=== PATIENT | female | born 1980 | race Hispanic/Latino ===

== ENCOUNTER 2016-12-16 15:33 | Outpatient (CLI) | payer OTHER | END 2016-12-16 15:34 | disposition home or self-care (01) | LOC: HPCALD 15:33 | PROVIDERS: ATTEND Physician Assistant | DX: K65.1 Peritoneal abscess (principal) | CPT/HCPCS: 87070; 87205 ==

== ENCOUNTER 2016-12-25 16:32 | Emergency (ER) | payer SELFPAY ==
--- NOTE | 2016-12-25 18:02 | ERRECORD ---
[facility] EMERGENCY RECORD HPI WOUND CHECK (17:10 DHAM) CHIEF COMPLAINT: Patient presents for evaluation of abdominal wound, incision, Wound is greater than 14 days old. HISTORIAN: History provided by patient, Pt has a vertical c section scar from surgery 5 years ago. This started pulling apart 2-3 weeks ago and was seen by Dr. Wu. She said it was worse today and they had no appts so she was told to come see us. She also has today developed nasal congestion, runny nose, slight sore throat and dry cough. She c/o chest soreness when she coughs. no fever or chills. she is a diabetic and did receive a flu shot. LOCATION: Symptoms are localized, most severe to lower abdomen. QUALITY: Pain is dull in nature, described as aching, described as only with a cough. SEVERITY: Current severity of pain rated as 8/10. TIME COURSE: There has been no change in the patient's symptoms over time, are intermittent. ASSOCIATED WITH: No associated chills, No associated fever. EXACERBATED BY: Patient's condition exacerbated by cough. RELIEVED BY: Patient's condition relieved by nothing, Patient's condition relieved by has albuterol at home but has not used it. ROS (17:19 DHAM) CONSTITUTIONAL: Historian denies chills, denies fever, denies lethargy. EYES: Historian denies eye pain, denies eye redness, denies eye discharge. ENT: Historian reports rhinorrhea, reports sore throat. nasal congestion. CARDIOVASCULAR: Historian reports chest pain, pleuritic, no radiation, Historian denies diaphoresis, denies dyspnea on exertion, denies edema, denies syncope, denies palpitations. RESPIRATORY: Historian reports cough, denies shortness of breath, denies sputum, denies stridor, denies wheezing. GI: Historian reports abdominal pain, denies nausea, denies vomiting. see skin below. MUSCULOSKELETAL: Historian denies arthralgias, denies fall, denies injury. SKIN: Historian reports skin lesions, 2 quarter sized skin tears on vertical lower abdominal scar. NEUROLOGIC: Historian denies dizziness, denies headache, denies paralysis, denies paresthesias. HEMO/LYMPHATIC: Historian denies abnormal blood clotting, denies easy bruising. ALLERGIC/IMMUNOLOGIC: Historian denies eczema, denies frequent infections. h/o asthma. PSYCHIATRIC: Historian reports depression. &a-1R&a+25V*p+0X*i0680F*c202B*c15G*c2P*p-0X&a-25V&a+1R Name: Yu Valadez : 1980 F36 MedRec: [id number] AcctNum: [id number] Prepared: [facility] Dec 26, 2016 01:23 by Interface Page 1 of 3 pMD [facility] EMERGENCY RECORD PAST MEDICAL HISTORY (16:45 LGIB) MEDICAL HISTORY: Flu vaccine not up to date, Tetanus not up to date, Pneumococcal vaccine not up to date, Past medical history includes history of diabetes, history of hypertension, pulmonary disease. asthma. FEMALE SURGICAL HISTORY: intestine sx as a child, Surgical history of cholecystectomy, laparoscopic, Surgical history of section. Verified 12/25/16. PSYCHIATRIC HISTORY: Psychiatric history includes, anxiety, schizophrenia, depression, BIPOLAR. Verified 12/25/16. SOCIAL HISTORY: Patient denies alcohol use, Patient denies drug use, Patient has no smoking history. KNOWN ALLERGIES No Known Allergies (Unconfirmed) CURRENT MEDICATIONS (16:43 LGIB) Unable to obtain VITAL SIGNS VITAL SIGNS: BP: 126/84, Pulse: 105, Resp: 20 (Non-Labored), Temp: 98.7 (Oral), Pain: 8, O2 sat: 97 on Room Air, Time: 12/25/2016 16:42. (16:42 LGIB) BP: 109/51, Pulse: 93, Resp: 19 (Non-Labored), O2 sat: 97 on Room Air, Time: 12/25/2016 17:41. (17:41 LGIB) PHYSICAL EXAM (17:22 DHAM) CONSTITUTIONAL: Vital signs reviewed, Patient afebrile, Pulse, tachycardic, initially mildly tachycardic but this came into the 80-90. She does not appear in distress, Blood pressure normal, Respiratory rate normal, Patient appears non toxic, Patient appears pain free, Patient alert and oriented to person, place and time. NECK: Neck exam included findings of normal range of motion, no meningeal signs. RESPIRATORY CHEST: Breath sounds clear, No wheezing, No rales, No rhonchi. CARDIOVASCULAR: Cardiovascular exam included findings of heart rate regular rate and rhythm, Heart sounds normal, normal S1, normal S2, no murmurs, no rub, no gallop. ABDOMEN FEMALE: Abdominal exam included findings of abdomen nontender, Bowel sounds normal, Liver normal, Spleen normal, no distension, no pulsatile masses, no peritoneal signs, no rigidity, no guarding, no rebound, see skin below. SKIN: 2 quarter sized skin tears on vertical lower abdominal scar. they are very superficial and not into the subcutaneous fat. It looks like this morbid obesity has just stretched the scar and caused these 2 superficial skin tears. no drainage or s/s of infection. &a-1R&a+25V*p+0X*x6310A*c202B*c15G*c2P*p-0X&a-25V&a+1R Name: Yu Valadez : 1980 6 MedRec: [id number] AcctNum: [id number] Prepared: FriDec 26, 2016 01:23 by Interface Page 2 of 3 pMD [facility] EMERGENCY RECORD LYMPHATIC: Lymphatic exam normal. PSYCHIATRIC: Psychiatric exam included findings of patient oriented to person place and time, Normal affect, Judgment normal, Insight normal, Remote memory normal, Recent memory normal, Concentration normal. PROBLEM LIST No recorded problems DIAGNOSIS (17:45 DHAM) FINAL: PRIMARY: skin tear abdomen x 2, ADDITIONAL: upper respiratory infection. PRESCRIPTION No recorded prescriptions DISPOSITION PATIENT: Disposition Type: Discharge, Disposition: *Discharge Home. (17:45 DHAM) Patient left the department. (17:54 LSMI) Osullivan: KATHRYN=MD Tamika, Bernardo LGIB=BLAIR Dixon, Claudia LSMI=SIMONA Del Toro, Saloni &a-1R&a+25V*p+0X*j1046M*c202B*c15G*c2P*p-0X&a-25V&a+1R Name: Yu Valadez : 1980 6 MedRec: [id number] AcctNum: [id number] Prepared: Elidia Dec 26, 2016 01:23 by Interface Page 3 of 3 pMD MTDD
--- NOTE | 2016-12-25 18:08 | PICIS ---
[facility] EMERGENCY RECORD TRIAGE (FriDec 25, 2016 16:37 LGIB) TRIAGE NOTES: STARTED TODAY, NON-PRODUCTIVE. (FriDec 25, 2016 16:37 LGIB) PATIENT: NAME: Yu Valadez, AGE: 36, GENDER: female, : Sun 1980, TIME OF GREET: FriDec 25, 2016 16:33, PREFERRED LANGUAGE: Senegalese, ETHNICITY: or , ECODE BILLING MAP: [facility], SSN: [id number], Zip Code: [address], KG WEIGHT: [phone], PHONE: , , , PERSON ID: [id number], PCP: DO DE LA ROSA KRISTEL. (FriDec 25, 2016 16:37 LGIB) PAYMENT: [employer] Self Pay. (16:44) COMPLAINT: COUGH, scar opened. (16:42 LGIB) ADMISSION: URGENCY: 4 Non Urgent, ADMISSION SOURCE: Home, TRANSPORT: CAR, BED: ER -03. (FriDec 25, 2016 16:37 LGIB) SIRS SCORING: Heart Rate 55-109 (0), Temp range 96.8-101.1 (0), respiratory rate 12-24 (0), Mental Status altered: no (0), Total SIRS Score 0. (16:45 LGIB) LMP: Last menstrual period: 12/16/2016. (17:33 LGIB) PROVIDERS: TRIAGE NURSE: Claudia Dixon RN. (FriDec 25, 2016 16:37 LGIB) PREVIOUS VISIT ALLERGIES: No Known Allergies. (FriDec 25, 2016 16:37 LGIB) No Known Allergies. (16:45 LGIB) KNOWN ALLERGIES No Known Allergies (Unconfirmed) CURRENT MEDICATIONS (16:43 LGIB) Unable to obtain VITAL SIGNS VITAL SIGNS: BP: 126/84, Pulse: 105, Resp: 20 (Non-Labored), Temp: 98.7 (Oral), Pain: 8, O2 sat: 97 on Room Air, Time: 12/25/2016 16:42. (16:42 LGIB) BP: 109/51, Pulse: 93, Resp: 19 (Non-Labored), O2 sat: 97 on Room Air, Time: 12/25/2016 17:41. (17:41 LGIB) NURSING ASSESSMENT: RESPIRATORY /CHEST (16:42 LGIB) CONSTITUTIONAL: Complex assessment performed, Patient arrives ambulatory, Gait steady, History obtained from patient, Patient appears comfortable, Patient cooperative, Patient alert, Oriented to person, place and time, Skin warm, Skin dry, Skin normal in color, Mucous membranes pink, Mucous membranes moist, Patient is well-groomed, Patient complains of COUGH, COUGH THAT BEGAN TODAY. NON-PRODUCTIVE, NAD RR EVEN AND UNLABORED. PAIN: on a scale 0-10 patient rates pain as 8. RESPIRATORY/CHEST: Breath sounds clear, Respiratory assessment findings include respiratory effort easy, Respirations regular, Conversing normally, Neck and chest exam findings include trachea midline, Chest expansion equal, Chest movement symmetrical, no signs &a-1R&a+25V*p+0X*l3061P*c202B*c15G*c2P*p-0X&a-25V&a+1R Name: Yu Valadez : 1980 F36 MedRec: [id number] AcctNum: [id number] Prepared: [facility] Dec 26, 2016 01:23 by Interface Page 1 of 6 pMD [facility] EMERGENCY RECORD of distress, no retractions noted, no cyanosis. ENT: Ear assessment findings include ear normal to inspection, Nasal assessment findings include nose normal to inspection, Mouth and throat assessment findings include mouth inspection normal. SAFETY: Side rails up, Cart/Stretcher in lowest position, Call light within reach, Hospital ID band on. NURSING PROCEDURE: DISCHARGE NOTE (17:51 LSMI) DISCHARGE: Patient discharged to home, ambulating without assistance, driving self, unaccompanied, Summary of Care printed/ provided, Transition record given to patient, Discharge instructions given to patient, Simple or moderate discharge teaching performed. ORDER DETAILS Order Name: Influenza A&B Ag Screen, Status: Active, Time: 17:15 12/25/2016, User: KATHRYN, - Ordered for: MD Lundberg Darren, - Entered by: MD Lundberg Darren - [facility] Dec 25, 2016 17:15, - Quantity: 1. HPI WOUND CHECK (17:10 [facility]) CHIEF COMPLAINT: Patient presents for evaluation of abdominal wound, incision, Wound is greater than 14 days old. HISTORIAN: History provided by patient, Pt has a vertical c section scar from surgery 5 years ago. This started pulling apart 2-3 weeks ago and was seen by Dr. De La Rosa. She said it was worse today and they had no appts so she was told to come see us. She also has today developed nasal congestion, runny nose, slight sore throat and dry cough. She c/o chest soreness when she coughs. no fever or chills. she is a diabetic and did receive a flu shot. LOCATION: Symptoms are localized, most severe to lower abdomen. QUALITY: Pain is dull in nature, described as aching, described as only with a cough. SEVERITY: Current severity of pain rated as 8/10. TIME COURSE: There has been no change in the patient's symptoms over time, are intermittent. ASSOCIATED WITH: No associated chills, No associated fever. EXACERBATED BY: Patient's condition exacerbated by cough. RELIEVED BY: Patient's condition relieved by nothing, Patient's condition relieved by has albuterol at home but has not used it. ROS (17:19 [facility]) CONSTITUTIONAL: Historian denies chills, denies fever, denies lethargy. EYES: Historian denies eye pain, denies eye redness, denies eye discharge. ENT: Historian reports rhinorrhea, reports sore &a-1R&a+25V*p+0X*d5154J*c202B*c15G*c2P*p-0X&a-25V&a+1R Name: Yu Valadez : 1980 F36 MedRec: [id number] AcctNum: [id number] Prepared: FriDec 26, 2016 01:23 by Interface Page 2 of 6 pMD [facility] EMERGENCY RECORD throat. nasal congestion. CARDIOVASCULAR: Historian reports chest pain, pleuritic, no radiation, Historian denies diaphoresis, denies dyspnea on exertion, denies edema, denies syncope, denies palpitations. RESPIRATORY: Historian reports cough, denies shortness of breath, denies sputum, denies stridor, denies wheezing. GI: Historian reports abdominal pain, denies nausea, denies vomiting. see skin below. MUSCULOSKELETAL: Historian denies arthralgias, denies fall, denies injury. SKIN: Historian reports skin lesions, 2 quarter sized skin tears on vertical lower abdominal scar. NEUROLOGIC: Historian denies dizziness, denies headache, denies paralysis, denies paresthesias. HEMO/LYMPHATIC: Historian denies abnormal blood clotting, denies easy bruising. ALLERGIC/IMMUNOLOGIC: Historian denies eczema, denies frequent infections. h/o asthma. PSYCHIATRIC: Historian reports depression. PAST MEDICAL HISTORY (16:45 LGIB) MEDICAL HISTORY: Flu vaccine not up to date, Tetanus not up to date, Pneumococcal vaccine not up to date, Past medical history includes history of diabetes, history of hypertension, pulmonary disease. asthma. FEMALE SURGICAL HISTORY: intestine sx as a child, Surgical history of cholecystectomy, laparoscopic, Surgical history of section. Verified 12/25/16. PSYCHIATRIC HISTORY: Psychiatric history includes, anxiety, schizophrenia, depression, BIPOLAR. Verified 12/25/16. SOCIAL HISTORY: Patient denies alcohol use, Patient denies drug use, Patient has no smoking history. PHYSICAL EXAM (17:22 DHAM) CONSTITUTIONAL: Vital signs reviewed, Patient afebrile, Pulse, tachycardic, initially mildly tachycardic but this came into the 80-90. She does not appear in distress, Blood pressure normal, Respiratory rate normal, Patient appears non toxic, Patient appears pain free, Patient alert and oriented to person, place and time. NECK: Neck exam included findings of normal range of motion, no meningeal signs. RESPIRATORY CHEST: Breath sounds clear, No wheezing, No rales, No rhonchi. CARDIOVASCULAR: Cardiovascular exam included findings of heart rate regular rate and rhythm, Heart sounds normal, normal S1, normal S2, no murmurs, no rub, no gallop. ABDOMEN FEMALE: Abdominal exam included findings of abdomen &a-1R&a+25V*p+0X*z9616H*c202B*c15G*c2P*p-0X&a-25V&a+1R Name: Yu Valadez : 1980 F36 MedRec: [id number] AcctNum: [id number] Prepared: Elidia Dec 26, 2016 01:23 by Interface Page 3 of 6 pMD [facility] EMERGENCY RECORD nontender, Bowel sounds normal, Liver normal, Spleen normal, no distension, no pulsatile masses, no peritoneal signs, no rigidity, no guarding, no rebound, see skin below. SKIN: 2 quarter sized skin tears on vertical lower abdominal scar. they are very superficial and not into the subcutaneous fat. It looks like this morbid obesity has just stretched the scar and caused these 2 superficial skin tears. no drainage or s/s of infection. LYMPHATIC: Lymphatic exam normal. PSYCHIATRIC: Psychiatric exam included findings of patient oriented to person place and time, Normal affect, Judgment normal, Insight normal, Remote memory normal, Recent memory normal, Concentration normal. EVENTS TRANSFER: Triage to Emergency Emergency Room -03. (FriDec 25, 2016 16:37 LGIB) Removed from Emergency Emergency Room -03. (17:54 LSMI) O2SAT INTERPRETATION (17:29 DHAM) O2SAT: Single pulse oximetry, Oxygen saturation 97%, on room air, Oxygen saturation interpretation: Normal, No intervention required. WOUND CHECK (17:42 DHAM) WOUND CHECK: Side and/or site verified, Patient identification confirmed, Sterile procedures observed, Verbal consent obtained, Wound check indicated for, skin tear, Wound check to, wet to dry applied by me, to abdomen, Wound age greater than 14 days, No drainage present, Wound clean, dry and intact, Patient tolerated the procedure well. PROBLEM LIST No recorded problems DIAGNOSIS (17:45 DHAM) FINAL: PRIMARY: skin tear abdomen x 2, ADDITIONAL: upper respiratory infection. DISPOSITION PATIENT: Disposition Type: Discharge, Disposition: *Discharge Home. (17:45 DHAM) Patient left the department. (17:54 LSMI) INSTRUCTION (17:47 DHAM) DISCHARGE: ABRASION, UPPER RESP INFECTION NO ANTIBIOTIC TREATMENT ADULT. FOLLOWUP: DO DE LA ROSA KRISTEL, Family [facility], [facility] [address], [phone]. SPECIAL: Wet to dry dressing TWICE A DAY as demonstrated See Dr. De La Rosa in 48 hours for recheck or return for signs of &a-1R&a+25V*p+0X*w5309X*c202B*c15G*c2P*p-0X&a-25V&a+1R Name: Yu Valadez : 1980 F36 MedRec: [id number] AcctNum: [id number] Prepared: FriDec 26, 2016 01:23 by Interface Page 4 of 6 pMD [facility] EMERGENCY RECORD infection such as redness, swelling, drainage or other concerns. Sudafed 12 hour each am and Afrin nasal spray at night for congestion Aleve 2 twice a day for aches and pains drink plenty of liquids return for fevers that last over 3 days or any other concerns. PRESCRIPTION No recorded prescriptions IMAGING *DISCHARGE INSTRUCTIONS RECEIPT: Image captured from scanner. (17:52 LSMI) *SUPPLY CHARGE SHEET: Image captured from scanner. (17:53 LSMI) ADMIN (FriDec 26, 2016 01:20 DHAM) DIGITAL SIGNATURE: MD Lundberg Darren. RESULTS (17:42 DHAM) MICROBIOLOGY: Influenza A&B Ag Screen: [id number] Collection DT: FriDec 25, 2016 17:28, See comment below , @ ER ROOM#: ER-03 Source: Nasal swab Spec Desc: , Influenza A Antigen: NEGATIVE for the , presence of , INFLUENZA A Antigen , Influenza B Antigen: NEGATIVE for the , presence of , INFLUENZA B Antigen , The rapid Flu A&B test can distinguish between influenza A , Influenza A&B Ag Screen See comment below , and B viruses, but it does not differentiate influenza , Influenza A&B Ag Screen See comment below , subtypes. , Influenza A&B Ag Screen See comment below , Influenza A&B Ag Screen See comment below , Influenza A&B Ag Screen See comment below , Influenza A&B Ag Screen See comment below , characteristics of this device with human specimens infected , Influenza A&B Ag Screen See comment below , with the 2009 H1N1 influenza virus have not been , Influenza A&B Ag Screen See comment below , established. For example: this test cannot distinguish , Influenza A&B Ag Screen See comment below , influenza infections caused by novel H1N1 influenza A , Influenza A&B Ag Screen See comment below , viruses versus seasonal influenza A viruses. , Influenza A&B Ag Screen See comment below , , Influenza A&B Ag Screen See comment below , A negative result does not exclude influenza virus , Influenza A&B Ag Screen See comment below , infection; therefore, if &a-1R&a+25V*p+0X*u1396R*c202B*c15G*c2P*p-0X&a-25V&a+1R Name: Yu Valadez : 1980 6 MedRec: [id number] AcctNum: [id number] Prepared: FriDec 26, 2016 01:23 by Interface Page 5 of 6 pMD [facility] EMERGENCY RECORD more conclusive testing is desired, , Influenza A&B Ag Screen See comment below , follow up confirmatory testing is warranted., Influenza A&B Ag Screen See comment below . Osullivan: KATHRYN=MD Tamika, Bernardo LGIB=BLAIR Dixon, Claudia LSMI=SIMONA Del Toro Leah &a-1R&a+25V*p+0X*d2342Y*c202B*c15G*c2P*p-0X&a-25V&a+1R Name: Yu Valadez : 1980 6 MedRec: [id number] AcctNum: [id number] Prepared: FriDec 26, 2016 01:23 by Interface Page 6 of 6 pMD MTDD
== END 2016-12-25 17:51 | disposition home or self-care (01) ==
LOC: BURERS 16:32
DX: S31.119A Laceration without foreign body of abdominal wall, unspecified quadrant without penetration into peritoneal cavity, initial encounter (principal); J06.9 Acute upper respiratory infection, unspecified; I10 Essential (primary) hypertension; J45.909 Unspecified asthma, uncomplicated; E11.9 Type 2 diabetes mellitus without complications; F31.9 Bipolar disorder, unspecified; F20.9 Schizophrenia, unspecified; X58.XXXA Exposure to other specified factors, initial encounter
CPT/HCPCS: 99283

== ENCOUNTER 2017-07-29 13:52 | Emergency (ER) | payer MEDICAID, OTHER, SELFPAY ==
[2017-07-29 14:21] LABS: Bilirubin Negative (Negative); Blood, Urine Negative (Negative); Clarity Slightly Cloudy (Clear); Glucose, Urine (Dipstick) Negative (Negative); Leukocyte Negative (Negative); Nitrite Negative (Negative); Protein, Urine (Dipstick) Negative (Neg-Trace); Specific Gravity, Urine 1.015 (1.005-1.030); Urobilinogen 0.2 mg/dL (0.2-1.0)
[2017-07-29 14:27] LABS: Pregnancy Test - Urine (BHCG) Negative (Negative); Pregu Control Background? CLEAR/WHITE (CLR/WHITE); Pregu Control Bar Appear? YES (CONTROL BAR); Specific Gravity 1.015 (1.002-1.036)
[2017-07-29] MEDS ORDERED: Ondansetron HCl/PF 4 MG/2 ML Vial ONE (14:32)
[2017-07-29] MEDS ORDERED: Fentanyl 100 MCG/2 ML VIAL ONE ×2 (14:33→17:42)
[2017-07-29 14:35] LABS: ALT (SGPT) 26 U/L (8-55); AST (SGOT) 19 U/L (5-34); Albumin 4.1 g/dL (3.5-5.0); Alkaline Phosphatase 103 U/L (40-150); Anion Gap 13 mmol/L (10-20); BUN (Urea Nitrogen) 10 mg/dL (7.0-18.7); Bilirubin, Total 0.6 mg/dL (0.2-1.2); Calc. Creatinine Clearance 0 mL/min (70-130); Calcium 9.4 mg/dL (7.8-10.44); Carbon Dioxide 26 mmol/L (22-29); Chloride 104 mmol/L (98-107); Estimated GFR-MDRD 75; Globulin 3.8 g/dL (2.4-3.5); Glucose 101 mg/dL (70-105); Lipase 16 U/L (8-78); Potassium 4.4 mmol/L (3.5-5.1); Protein, Total 7.9 g/dL (6.0-8.3); Sodium 139 mmol/L (136-145)
[2017-07-29 14:37] LABS: #Basophils 0.1 thou/uL (0.0-0.2); #Eosinphils 0.1 thou/uL (0.0-0.7); #Lymphocytes 2.7 thou/uL (1.20-3.40); #Monocytes 0.6 thou/uL (0.11-0.59); #Neutrophils 8.4 thou/uL (1.40-6.50); %Basophils 0.5 % (0.0-1.0); %Eosinophils 1.2 % (0.0-10.0); %Lymphocytes 22.4 % (21.0-51.0); %Monocytes 4.9 % (0.0-10.0); Hemoglobin 13.7 g/dL (12.0-16.0); Mean Corpuscular HGB CONC 32.1 g/dL (32.0-36.0); Mean Corpuscular Hemoglobin 27.7 pg (27.0-31.0); Mean Corpuscular Volume 86.1 fl (81.0-99.0); Mean Platelet Volume 8.4 fL (7.4-10.4); Platelet Count 295 thou/uL (130-400); RBC Distribution Width 14.9 % (11.5-14.5); Red Blood Cell (RBC) Count 4.97 mill/uL (4.20-5.40); White Blood Cell (WBC) Count 11.9 thou/uL (4.8-10.8)
[2017-07-29] MEDS ORDERED: Ampicillin/Sulbactam 1.5 GM VIAL ONE (15:35)
== END 2017-07-29 18:36 | disposition short-term general hospital (02) ==
LOC: BURERS 13:52
DX: R10.32 Left lower quadrant pain (principal); R30.0 Dysuria; I10 Essential (primary) hypertension; J45.909 Unspecified asthma, uncomplicated; F41.9 Anxiety disorder, unspecified; F31.9 Bipolar disorder, unspecified; F20.9 Schizophrenia, unspecified
CPT/HCPCS: 80053; 81003; 81025; 83690; 85025; 96365; 96375; 96376; J0295; J2405; J3010

== ENCOUNTER 2017-08-19 17:17 | Emergency (ER) | payer OTHER | END 2017-08-19 17:36 | disposition home or self-care (01) | LOC: BURERS 17:17 | DX: B08.4 Enteroviral vesicular stomatitis with exanthem (principal); I10 Essential (primary) hypertension; J45.909 Unspecified asthma, uncomplicated; F41.9 Anxiety disorder, unspecified; F20.9 Schizophrenia, unspecified; F31.9 Bipolar disorder, unspecified | CPT/HCPCS: 99282 ==

== ENCOUNTER 2018-04-08 09:21 | Outpatient (CLI) | payer OTHER ==
--- NOTE | 2018-04-08 11:11 | ULT ---
RIGHT LOWER EXTREMITY VENOUS DUPLEX EXAM: Indication: Right calf pain, edema. FINDINGS: Deep veins of the right lower extremity were evaluated with color doppler, spectral analysis and comp ression. These veins show normal compression and blood flow. No evidence of DVT identified. IMPRESSION: No evidence of right lower extremity DVT. POS: [facility]
== END 2018-04-08 09:22 | disposition home or self-care (01) ==
LOC: BURULT 09:21
PROVIDERS: ATTEND Physician Assistant
DX: M79.661 Pain in right lower leg (principal)

== ENCOUNTER 2018-06-12 11:49 | Outpatient (CLI) | payer OTHER ==
--- NOTE | 2018-06-12 19:32 | RAD ---
RIGHT KNEE FIVE VIEWS 06/12/18 No fracture, dislocation, or acute bony change was seen. No joint fluid was indicated. There is some minor medial joint space narrowing which may or may not be significant. A small amount of bony spurri ng from the tibial spines was noted which also may be of limited significance. IMPRESSION: No acute findings. See discussion above. POS: HOME
--- NOTE | 2018-06-12 19:33 | RAD ---
LEFT KNEE FOUR VIEWS: 06/12/18 No fracture, dislocation, or acute bony change was seen. The medial joint space is marginally narrowe d. A very tiny bony density overlapping the posterior tibial plateau on the lateral view is of unknow n significance, but probably low. IMPRESSION: No acute findings. POS: HOME
--- NOTE | 2018-06-12 19:34 | RAD ---
THORACIC SPINE THREE VIEWS: 06/12/18 There is a minor S-shaped scoliosis in the thoracic spine. No fracture, dislocation, or disc space na rrowing was seen. There are no bony anomalies of concern. IMPRESSION: Minimal curvature of the spine. POS: HOME
== END 2018-06-12 11:50 | disposition home or self-care (01) ==
LOC: BURRAD 11:49
PROVIDERS: ATTEND Family Medicine
DX: M54.6 Pain in thoracic spine (principal); M25.561 Pain in right knee; M25.562 Pain in left knee; M43.9 Deforming dorsopathy, unspecified
CPT/HCPCS: 72072

== ENCOUNTER 2018-08-16 20:13 | Emergency (ER) | payer OTHER ==
[2018-08-16 20:42] LABS: #Basophils 0.1 thou/uL (0.0-0.2); #Eosinphils 0.2 thou/uL (0.0-0.7); #Lymphocytes 3.4 thou/uL (1.20-3.40); #Monocytes 0.8 thou/uL (0.11-0.59); #Neutrophils 9.6 thou/uL (1.40-6.50); %Basophils 0.7 % (0.0-1.0); %Eosinophils 1.2 % (0.0-10.0); %Lymphocytes 23.8 % (21.0-51.0); %Monocytes 5.7 % (0.0-10.0); %Neutrophils 68.6 % (42.0-75.0); Hemoglobin 12.7 g/dL (12.0-16.0); Mean Corpuscular HGB CONC 31.9 g/dL (32.0-36.0); Mean Corpuscular Hemoglobin 27.1 pg (27.0-31.0); Mean Corpuscular Volume 84.8 fL (78.0-98.0); Platelet Count 335 thou/uL (130-400); RBC Distribution Width 14.5 % (11.5-14.5); Red Blood Cell (RBC) Count 4.69 mill/uL (4.20-5.40); White Blood Cell (WBC) Count 14.1 thou/uL (4.8-10.8)
[2018-08-16 20:52] LABS: Clarity Slightly Cloudy (Clear); Leukocyte Negative (Negative); Nitrite Negative (Negative); Pregnancy Test - Urine (BHCG) Negative (Negative); Pregu Control Background? CLEAR/WHITE (CLR/WHITE); Pregu Control Bar Appear? YES (CONTROL BAR); Protein, Urine (Dipstick) Negative (Neg-Trace); Specific Gravity 1.008 (1.002-1.036); Specific Gravity, Urine 1.008 (1.002-1.036)
[2018-08-16 20:53] LABS: Bilirubin Negative (Negative); Blood, Urine Negative (Negative); Glucose, Urine (Dipstick) Negative (Negative); Urobilinogen 0.2 mg/dL (0.2-1.0)
[2018-08-16 21:01] LABS: ALT (SGPT) 21 U/L (8-55); AST (SGOT) 19 U/L (5-34); Acetaminophen Less than 6.0 mcg/mL (10.0-30.0); Albumin 4.3 g/dL (3.5-5.0); Alkaline Phosphatase 115 U/L (40-150); Anion Gap 16 mmol/L (10-20); BUN (Urea Nitrogen) 11 mg/dL (7.0-18.7); Bilirubin, Total Less than 0.2 mg/dL (0.2-1.2); Calc. Creatinine Clearance 0 mL/min (70-130); Calcium 9.4 mg/dL (7.8-10.44); Carbon Dioxide 19 mmol/L (22-29); Chloride 99 mmol/L (98-107); Estimated GFR-MDRD 56; Globulin 4.1 g/dL (2.4-3.5); Glucose 88 mg/dL (70-105); Potassium 3.4 mmol/L (3.5-5.1); Protein, Total 8.4 g/dL (6.0-8.3); Salicylate Less than 8.0 mg/dL (15.0-30.0); Sodium 131 mmol/L (136-145)
[2018-08-16] MEDS ORDERED: Ketorolac Tromethamine 30 MG/ML VIAL ONE (21:12)
[2018-08-16 21:24] LABS: Amphetamine Not Detected (NotDetected); Barbiturates Screen Not Detected (NotDetected); Benzodiazepine Screen Not Detected (NotDetected); Cocaine Metabolite Screen Not Detected (NotDetected); Medtox Control Line Valid? VALID (VALID); Methadone Not Detected (NotDetected); Methamphetamine Not Detected (NotDetected); Opiate Screen Not Detected (NotDetected); Oxycodone Screen Not Detected (NotDetected); Phencyclidine (PCP) Not Detected (NotDetected); THC/Cannabinoid Screen Detected (NotDetected); Tricyclic Screen Not Detected (NotDetected)
== END 2018-08-17 04:12 ==
LOC: BURERS 20:13
DX: R45.851 Suicidal ideations (principal); J45.909 Unspecified asthma, uncomplicated; I10 Essential (primary) hypertension; F41.9 Anxiety disorder, unspecified; F20.9 Schizophrenia, unspecified; F31.9 Bipolar disorder, unspecified; F17.210 Nicotine dependence, cigarettes, uncomplicated; Z79.899 Other long term (current) drug therapy
CPT/HCPCS: 36415; 80053; 80306; 80307; 81003; 81025; 85025; 96374; J1885

== ENCOUNTER 2018-08-31 16:41 | Emergency (ER) | payer OTHER ==
[2018-08-31] MEDS ORDERED: Ketorolac Tromethamine 60 MG/2 ML VIAL ONE (16:52)
[2018-08-31] MEDS ORDERED: Cyclobenzaprine 10 MG TAB ONE (16:52)
[2018-08-31] MEDS ORDERED: predniSONE 20 MG TAB ONE (16:52)
== END 2018-08-31 17:10 | disposition home or self-care (01) ==
LOC: BURERS 16:41
DX: M54.6 Pain in thoracic spine (principal); I10 Essential (primary) hypertension; J45.909 Unspecified asthma, uncomplicated; F41.9 Anxiety disorder, unspecified; F20.9 Schizophrenia, unspecified; F31.9 Bipolar disorder, unspecified; F17.210 Nicotine dependence, cigarettes, uncomplicated; Z79.899 Other long term (current) drug therapy
CPT/HCPCS: 96372; J1885; J7506

== ENCOUNTER 2019-02-09 13:07 | Outpatient (CLI) | payer OTHER ==
--- NOTE | 2019-02-09 14:45 | RAD ---
TWO VIEW CHEST: History: Cough. FINDINGS: Lungs appear clear. No infiltrate seen. Heart and mediastinum unremarkable. Vasculature normal. [place] us structures are unremarkable. IMPRESSION: Unremarkable chest. POS: [facility]
== END 2019-02-09 13:08 | disposition home or self-care (01) ==
LOC: BURRAD 13:07
PROVIDERS: ATTEND Physician Assistant
DX: R05 Cough (principal)
CPT/HCPCS: 71046

== ENCOUNTER 2019-07-14 14:18 | Emergency (ER) | payer OTHER ==
[2019-07-14 14:48] LABS: #Eosinphils 0.2 thou/uL (0.0-0.7); #Lymphocytes 2.3 thou/uL (1.20-3.40); #Monocytes 0.7 thou/uL (0.11-0.59); #Neutrophils 6.8 thou/uL (1.40-6.50); %Basophils 0.4 % (0.0-1.0); %Eosinophils 1.7 % (0.0-10.0); %Lymphocytes 22.8 % (21.0-51.0); %Monocytes 6.6 % (0.0-10.0); %Neutrophils 68.5 % (42.0-75.0); Hemoglobin 11.5 g/dL (12.0-16.0); Mean Corpuscular HGB CONC 31.7 g/dL (32.0-36.0); Mean Corpuscular Hemoglobin 27.5 pg (27.0-31.0); Mean Corpuscular Volume 86.6 fL (78.0-98.0); Mean Platelet Volume 7.2 fL (7.4-10.4); Platelet Count 315 thou/uL (130-400); RBC Distribution Width 13.9 % (11.5-14.5)
[2019-07-14] MEDS ORDERED: Ondansetron PF 4 MG/2 ML Vial ONE (14:48)
[2019-07-14 15:00] LABS: BHCG - Serum Negative (NEGATIVE); Pregs Control Background? CLEAR/WHITE (CLR/WHITE); Pregs Control Bar Appear? YES (CONTROL BAR)
[2019-07-14] MEDS ORDERED: Albuterol Sulfate 1.25 MG/3 ML NEB ONE (15:03)
[2019-07-14 15:07] LABS: ALT (SGPT) 17 U/L (8-55); AST (SGOT) 19 U/L (5-34); Albumin 4.1 g/dL (3.5-5.0); Alkaline Phosphatase 100 U/L (40-150); Anion Gap 15 mmol/L (10-20); BUN (Urea Nitrogen) 14 mg/dL (7.0-18.7); Bilirubin, Total 0.5 mg/dL (0.2-1.2); CK (CPK) 69 U/L (29-168); Calc. Creatinine Clearance 0 mL/min (70-130); Calcium 9.7 mg/dL (7.8-10.44); Carbon Dioxide 22 mmol/L (22-29); Chloride 105 mmol/L (98-107); Estimated GFR-MDRD 46; Glucose 103 mg/dL (70-105); Lipase 18 U/L (8-78); Potassium 4.3 mmol/L (3.5-5.1); Protein, Total 8.1 g/dL (6.0-8.3); Sodium 138 mmol/L (136-145)
== END 2019-07-14 15:30 | disposition home or self-care (01) ==
LOC: BURERS 14:18
DX: K52.9 Noninfective gastroenteritis and colitis, unspecified (principal); E86.0 Dehydration; I10 Essential (primary) hypertension; J45.909 Unspecified asthma, uncomplicated; F31.9 Bipolar disorder, unspecified
CPT/HCPCS: 80053; 82550; 83690; 84484; 84703; 85025; 93005; 96361; 96374; J2405

== ENCOUNTER 2019-09-22 07:44 | Emergency (ER) | payer OTHER | END 2019-09-22 08:16 | disposition home or self-care (01) | LOC: BURERS 07:44 | DX: K03.81 Cracked tooth (principal); I10 Essential (primary) hypertension; J45.909 Unspecified asthma, uncomplicated; F31.9 Bipolar disorder, unspecified | CPT/HCPCS: 99282 ==

== ENCOUNTER 2019-12-02 13:36 | Outpatient (CLI) | payer OTHER ==
--- NOTE | 2019-12-02 18:37 | RAD ---
CHEST TWO VIEWS: 12/02/19 Sensitivity of the study is somewhat reduced by body habitus. The heart is normal in size and the yury gs are clear. There is no infiltrate or effusion noted. The appearance of the chest shows no adverse change when compared with an 07/23/19 study. IMPRESSION: No acute thoracic finding. POS: HOME
== END 2019-12-02 13:37 | disposition home or self-care (01) ==
LOC: BUREKG 13:36
PROVIDERS: ATTEND Physician Assistant
DX: I10 Essential (primary) hypertension (principal); R06.02 Shortness of breath
CPT/HCPCS: 71046; 93005; 93010

== ENCOUNTER 2019-12-31 08:10 | Emergency (ER) | payer OTHER ==
[2019-12-31] MEDS ORDERED: Cyclobenzaprine 10 MG TAB ONE (08:31)
[2019-12-31] MEDS ORDERED: Acetaminophen/Codeine 30-300mg Tablet ONE (08:31)
[2019-12-31 08:35] LABS: Bilirubin Negative (Negative); Blood, Urine Negative (Negative); Clarity Slightly Cloudy (Clear); Glucose, Urine (Dipstick) Negative (Negative); Leukocyte Negative (Negative); Nitrite Negative (Negative); Protein, Urine (Dipstick) Negative (Neg-Trace); Urobilinogen 0.2 mg/dL (Less than 2)
[2019-12-31 08:37] LABS: Pregnancy Test - Urine (BHCG) Negative (Negative); Pregu Control Background? CLEAR/WHITE (CLR/WHITE); Pregu Control Bar Appear? YES (CONTROL BAR); Specific Gravity 1.025 (1.002-1.036)
== END 2019-12-31 08:52 | disposition home or self-care (01) ==
LOC: BURERS 08:10
DX: M54.5 Low back pain (principal); I10 Essential (primary) hypertension; J45.909 Unspecified asthma, uncomplicated; F41.9 Anxiety disorder, unspecified; Z79.899 Other long term (current) drug therapy
CPT/HCPCS: 81003; 81025; 99283

== ENCOUNTER 2020-02-06 18:18 | Observation (INO) | payer OTHER ==
[2020-02-06] MEDS ORDERED: Ketorolac Tromethamine 30 MG/ML VIAL ONE (18:40)
[2020-02-06] MEDS ORDERED: Glycopyrrolate 0.4 MG/ 2 ML VIAL ONE (18:40)
[2020-02-06 19:06] LABS: ALT (SGPT) 25 U/L (8-55); Alkaline Phosphatase 129 U/L (40-110); Anion Gap 15 mmol/L (10-20); BUN (Urea Nitrogen) 11 mg/dL (7.0-18.7); Bilirubin, Total 0.4 mg/dL (0.2-1.2); Calc. Creatinine Clearance 0 mL/min (70-130); Calcium 9.3 mg/dL (7.8-10.44); Carbon Dioxide 26 mmol/L (22-29); Chloride 102 mmol/L (98-107); Estimated GFR-MDRD 63; Globulin 4.1 g/dL (2.4-3.5); Glucose 108 mg/dL (70-105); Potassium 4.2 mmol/L (3.5-5.1); Protein, Total 8.1 g/dL (6.0-8.3); Sodium 139 mmol/L (136-145)
[2020-02-06 19:16] LABS: Hemoglobin 12.9 g/dL (12.0-16.0); MDiff Complete? YES; Manual Diff?? YES; Mean Corpuscular HGB CONC 31.7 g/dL (32.0-36.0); Mean Corpuscular Hemoglobin 28.1 pg (27.0-31.0); Mean Corpuscular Volume 88.4 fL (78.0-98.0); Mean Platelet Volume 8.8 fL (7.4-10.4); Neutrophil 71 % (42-75); Platelet Count 317 thou/uL (130-400); RBC Distribution Width 13.9 % (11.5-14.5); Red Blood Cell (RBC) Count 4.58 mill/uL (4.20-5.40); White Blood Cell (WBC) Count 16.1 thou/uL (4.8-10.8)
--- NOTE | 2020-02-06 19:16 | CT ---
CT of abdomen and pelvis: 02/06/2020 COMPARISON: None HISTORY: Right-sided flank pain TECHNIQUE: Axial CT imaging at 5 mm intervals from lung bases through pubic symphysis without contras t. Coronal reformatted imaging obtained. FINDINGS: Lack of contrast media limits assessment of the viscera, bowel, vascular structures, and fo r lymphadenopathy. Imaged lung bases are unremarkable. No free intraperitoneal air. Cholecystectomy clips are present. L imited assessment of the liver, spleen, pancreas, adrenal glands, and kidneys appears grossly unremarkable. The appendix appears grossly unremarkable. Limited assessment of the bowel demonstrates no evidence for high-grade obstruction. There is a single distended loop of bowel containing gas within the anterior aspect of the mid abdome n, best seen on axial image 47, which is felt to likely represent small bowel. Question a history of prior small bowel surgery. A small ventral hernia seen containing a single loop of small bowel on axial image 70. The small bowel proximal and distal to this is not distended. There is no evidence for nephrolithiasis or obstructive uropathy. Review of the osseous structures de monstrates no worrisome findings. IMPRESSION: No evidence for nephrolithiasis or obstructive uropathy. There is a single dilated loop o f bowel within the anterior mid abdomen measuring up to 4.7 cm in AP dimension. This is felt to represent a focal dilated loop of small bowel. This could be related to prior surgery or could signif y a focal ileus. Early changes of developing small bowel obstruction cannot be excluded although there is no evidence for high-grade small bowel obstruction at this time. Clinical correlation is ess ential. Please consider follow-up imaging to document resolution..
[2020-02-06 19:17] LABS: Band 2 % (5-11); Lymphocytes 15 % (21-51)
[2020-02-06 19:18] LABS: Eosinophils 4 % (0-10); Monocytes 6 % (0-10); Reactive Lymphocytes 1 % (0-10)
[2020-02-06 19:22] LABS: AST (SGOT) 22 U/L (5-34)
[2020-02-06 19:25] LABS: Bilirubin Small (Negative); Blood, Urine Negative (Negative); Clarity Cloudy (Clear); Glucose, Urine (Dipstick) Negative (Negative); Leukocyte Negative (Negative); Nitrite Negative (Negative); Protein, Urine (Dipstick) Negative (Neg-Trace); Urobilinogen 0.2 mg/dL (Less than 2)
[2020-02-06] MEDS ORDERED: Fentanyl 100 MCG/2 ML VIAL ONE (21:13)
[2020-02-06 22:24] VITALS: BMI 69.0
[2020-02-06] MEDS ORDERED: Acetaminophen 650 MG Suppository PR PRN (22:47)
[2020-02-06] MEDS ORDERED: Ondansetron ODT 4 MG TAB PO PRN (22:47)
[2020-02-06] MEDS: Sodium Chloride 0.9% 1,000 ML IV SCH (23:32)
[2020-02-06] MEDS ORDERED: Morphine 2 MG/ML SYRINGE ONE (23:58)
[2020-02-07] MEDS: Morphine 2 MG/ML SYRINGE SLOW IVP PRN ×4 (00:01→15:30)
[2020-02-07] MEDS: Acetaminophen 325 MG TAB PO PRN ×2 (03:01→12:38)
[2020-02-07] MEDS ORDERED: Morphine 2 MG/ML SYRINGE ONE ×4 (04:11→15:29)
[2020-02-07 04:45] LABS: #Basophils 0.1 thou/uL (0.0-0.2); #Eosinphils 0.2 thou/uL (0.0-0.7); #Lymphocytes 2.6 thou/uL (1.20-3.40); #Monocytes 0.9 thou/uL (0.11-0.59); #Neutrophils 9.7 thou/uL (1.40-6.50); %Basophils 0.8 % (0.0-1.0); %Eosinophils 1.7 % (0.0-10.0); %Lymphocytes 19.3 % (21.0-51.0); %Monocytes 6.5 % (0.0-10.0); %Neutrophils 71.7 % (42.0-75.0); Hemoglobin 11.1 g/dL (12.0-16.0); Mean Corpuscular HGB CONC 31.9 g/dL (32.0-36.0); Mean Corpuscular Hemoglobin 27.4 pg (27.0-31.0); Platelet Count 265 thou/uL (130-400); RBC Distribution Width 13.9 % (11.5-14.5); Red Blood Cell (RBC) Count 4.05 mill/uL (4.20-5.40); White Blood Cell (WBC) Count 13.5 thou/uL (4.8-10.8)
[2020-02-07 04:48] LABS: ALT (SGPT) 20 U/L (8-55); AST (SGOT) 15 U/L (5-34); Albumin 3.5 g/dL (3.5-5.0); Alkaline Phosphatase 109 U/L (40-110); Anion Gap 13 mmol/L (10-20); BUN (Urea Nitrogen) 11 mg/dL (7.0-18.7); Bilirubin, Total 0.5 mg/dL (0.2-1.2); Calc. Creatinine Clearance 271 mL/min (70-130); Calcium 8.3 mg/dL (7.8-10.44); Carbon Dioxide 27 mmol/L (22-29); Chloride 104 mmol/L (98-107); Estimated GFR-MDRD 71; Globulin 3.1 g/dL (2.4-3.5); Glucose 98 mg/dL (70-105); Potassium 3.9 mmol/L (3.5-5.1); Protein, Total 6.6 g/dL (6.0-8.3); Sodium 140 mmol/L (136-145)
[2020-02-07] MEDS ORDERED: Morphine 2 MG/ML SYRINGE SLOW IVP SCH (05:15)
[2020-02-07] MEDS: Sodium Chloride 0.9% 1,000 ML IV SCH ×3 (07:25→23:53)
[2020-02-07] MEDS ORDERED: FLU VACC QS2019-20(6MOS UP)/PF 60 MCG/0.5 ML SYRINGE IM ONE (09:00)
[2020-02-07] MEDS: Lisinopril 10 MG TAB PO SCH (09:06)
[2020-02-07] MEDS: lamoTRIgine 25 MG TAB PO SCH ×2 (09:06→20:53)
[2020-02-07] MEDS: busPIRone HCl 5 MG TAB PO SCH ×3 (09:07→20:54)
[2020-02-07] MEDS ORDERED: Morphine 4 MG/ML VIAL IV PRN (09:12)
--- NOTE | 2020-02-07 12:55 | CT ---
CT OF ABDOMEN AND PELVIS: DATE: 02/07/2020. COMPARISON: 02/06/2020. HISTORY: Ileus seen on recent CT, followup requested. TECHNIQUE: Axial CT imaging is obtained at 5 mm intervals from the lung bases through the pubic symphysis with i ntravenous and/or oral contrast. Coronal and sagittal reformatted imaging obtained. FINDINGS: The imaged lung bases appear unremarkable. No free intraperitoneal air or fluid is evident. The liver and spleen appear grossly unremarkable. The pancreas, adrenal glands, and kidneys appear g rossly unremarkable. The gallbladder is surgically absent. There is a focal area of prominent wall thickening involving the colon at the level of the hepatic fl exure with adjacent pericolonic fat stranding, much more conspicuous on this examination. This is be st seen on coronal image 76 and involves a segment of the colon measuring approximately 7.4 cm in khadijah gth. This suggests a focal area of nonspecific colitis which may be inflammatory or ischemic in natu re. Short-term followup direct visualization following treatment advised with colonoscopy to exclude an underlying mass within the colon in this region. The appendix appears within normal limits. Review of the osseous structures demonstrates no discrete lytic or blastic bone lesion. Detailed ass essment is limited on the basis of body habitus. The vascular structures of the abdomen/pelvis appear unremarkable. IMPRESSION: 1. Prominent circumferential area of wall thickening of the colon within the distal ascending colon and hepatic flexure with adjacent fat stranding suggesting nonspecific colitis, which may be inflamma tory/infectious or ischemic in nature. 2. Mildly prominent small bowel loop within the mid abdomen noted on the prior examination is slight ly less conspicuous. Contrast media reaches the colon and, thus, there is no evidence for small mark l obstruction. Recommend direct visualization via colonoscopy following treatment to exclude an underlying mass lesi on within the colon in the region of the hepatic flexure. CODE T POS: MANA
[2020-02-07] MEDS ORDERED: traZODone HCl 50 MG TAB PO SCH (21:00)
--- NOTE | 2020-02-07 23:26 | HP ---
CHIEF COMPLAINT: Abdominal pain. HISTORY OF THE PRESENT ILLNESS: Ms. Valadez is a 39-year-old female with past medical history of morbid obesity, hypertension, asthma, ureterolithiasis, and bipolar disorder, who presented to the emergency department with complaint of right lower quadrant pain radiating to the right flank, described as dull in nature and severe, rated at 8 on a 1-10 scale with sudden onset yesterday morning. She reports her last bowel movement was day before yesterday, which was the day prior to presentation. She reports that was normal in caliber. She did have some associated nausea but no vomiting. With escalating pain, the patient presented to the emergency room for further evaluation. She denies having any associated fever, upper respiratory symptoms. Denied the inability to pass flatus. In the emergency room, the patient was found to have leukocytosis and was afebrile. She received fentanyl, IV fluids, Robinul, and Toradol in the emergency department. CT scan of the abdomen and pelvis showed findings of single dilated loop of bowel within the anterior mid abdomen, felt to represent a focal dilated loop of small bowel, possibly related to a prior surgery or could signify a focal ileus. Early changes of developing small bowel obstruction could not be excluded. Therefore, the patient was recommended admission. She has been given IV fluids and her CT scan repeated this morning for followup. Overnight, she did have some pain requiring a dose of morphine IV. Overall, this afternoon, the patient is feeling much improved since her admission. She still has some intermittent pain in the right upper quadrant. Of note, she has had a cholecystectomy in the past and the appendix appeared normal on the scan. She has been n.p.o. and has had no vomiting. She is now passing some flatus and has active bowel sounds. PAST MEDICAL HISTORY: 1. Hypertension. 2. Asthma. 3. Morbid obesity. 4. Ureterolithiasis. 5. Bipolar disorder. PAST SURGICAL HISTORY: 1. Cholecystectomy. 2. Intestinal surgery as a child. 3. . SOCIAL HISTORY: Former smoker of cigarettes, but quit a year ago. Denies any illicit drug use. Denies alcohol use. She is and has a female partner. ALLERGIES: PENICILLIN, THAT CAUSES HIVES. MEDICATIONS: 1. Buspirone 15 mg p.o. t.i.d. 2. Famotidine 20 mg p.o. b.i.d. 3. Sertraline 100 mg p.o. daily. 4. Ferrous sulfate 325 mg p.o. daily. 5. Docusate sodium 100 mg p.o. daily p.r.n. 6. Lamotrigine 100 mg p.o. b.i.d. 7. Hydrochlorothiazide 25 mg p.o. b.i.d. 8. Aripiprazole 5 mg one p.o. daily. 9. Cetirizine 10 mg one p.o. daily. 10. Lisinopril 40 mg p.o. daily. 11. Trazodone 100 mg p.o. daily. FAMILY HISTORY: Noncontributory. REVIEW OF SYSTEMS: GENERAL: Denies fever, malaise, myalgias, focal weakness. HEENT: Denies sore throat, rhinorrhea, cough, ear pain. CARDIOVASCULAR: Denies chest pain, palpitations, orthopnea, PND. RESPIRATORY: Denies wheezing, shortness of breath, hemoptysis. GI: Denies melena, hematochezia, vomiting. Usual bowel movements are daily and formed consistency. No diarrhea. GENITOURINARY: Denies dysuria, gross hematuria, urinary frequency or urgency. LYMPHATIC: Denies swelling. HEMATOLOGIC: Denies bleeding or easy bruising. PSYCHIATRIC: Denies hallucinations or suicidal ideation. NEUROLOGIC: Denies slurred speech, confusion, headache. PHYSICAL EXAMINATION: VITAL SIGNS: In the emergency department upon presentation, temp 99.3, pulse 117, blood pressure 126/87, respirations 20, O2 saturation 94% on room air. At my exam; temperature 98.2, pulse 79, respirations 20, blood pressure 129/60, and 95% O2 saturation on room air. GENERAL: Well-developed, obese female, alert and oriented x3, pleasant, in no acute distress. HEENT: Normocephalic, atraumatic. Pupils equally round and reactive to light and accommodation. Extraocular muscles intact. Nares are patent without discharge. Tongue protrudes in the midline. NECK: Supple without lymphadenopathy, thyromegaly, JVD, or bruit. HEART: Regular rate and rhythm. Normal S1, S2. No murmurs, clicks, rubs, or gallops. LUNGS: Clear to auscultation bilaterally. No crackles or wheezes. ABDOMEN: Positive bowel sounds in all four quadrants, but hypoactive. Soft, mild tenderness to palpation in right upper quadrant, nondistended, but examination limited by body habitus. No masses, guarding, or rebound tenderness. Central vertical scarring noted and scarring to the lower abdomen horizontally. EXTREMITIES: No cyanosis, clubbing, or edema. NEUROLOGIC: Cranial nerves 2 through 12 grossly intact. No focal deficits. PSYCHIATRIC: Normal speech. No thought disorder at this time. Non-anxious appearing. LABORATORY DATA: White count on admission 16,000 with 71% polys, 2% bands, 15% lymphocytes, and repeat today 13,500 with 72% polys and 19% lymphocytes, hemoglobin 12.9, hematocrit 40.5, platelets 317. Sodium 139, potassium 4.2, chloride 102, bicarb 26, BUN 11, creatinine 0.99, glucose 108, lactic acid 0.9, repeat lactic acid 0.6, calcium 9.3, T bilirubin 0.4, AST 22, ALT 25, alkaline phosphatase 129, albumin 4.0. Repeat CMP today is unremarkable except for albumin to globulin ratio 1.1, which is flagged as low. Urinalysis significant for small bilirubin, otherwise negative. CT scan of the abdomen and pelvis performed yesterday as per HPI. Repeat performed at 10 o'clock this morning shows prominent circumferential area of wall thickening of the colon within the distal ascending colon and hepatic flexure with adjacent fat stranding suggesting nonspecific colitis which may be inflammatory, infectious or ischemic in nature. Mildly prominent small bowel loop within the mid abdomen noted on the prior examination, slightly less conspicuous. Contrast media reaches the colon and thus there is no evidence for small bowel obstruction. Recommend direct visualization via colonoscopy following treatment to exclude an underlying mass lesion within the colon in the region of the hepatic flexure. ASSESSMENT AND PLAN: 1. Right upper quadrant abdominal pain. This looks to be secondary to nonspecific colitis. With the patient being n.p.o., the pain has improved without antibiotics or other treatment. She has not had diarrhea. In addition, the possible early small bowel obstruction seems to no longer be an issue. We will attempt to give the patient a clear liquid diet this evening and see how she tolerates it. We will continue her on Pepcid and a stool softener. We will advance slowly as tolerated. She is passing flatus and the pain is improved. She possibly could discharge in the morning. It is recommended that once her condition improves that she see Gastroenterology for possible colonoscopy to evaluate the thickened area of the ascending colon and hepatic flexure. 2. Neutrophilic leukocytosis. This is improved with supportive care. We will repeat a CBC in the a.m. The patient has been afebrile. 3. Hypertension. The patient will be continued on her home medications. 4. Bipolar disorder. The patient will be continued on her psychiatric regimen. 5. Prophylaxis. The patient is on H2 harley and plan to ambulate and less than two-day hospital stay. We can place SCDs in bed or give Lovenox if her stay extends. Job ID: [id number]
[2020-02-07] MEDS: Promethazine 25 MG TAB PO PRN (23:52)
[2020-02-08] MEDS ORDERED: Promethazine 25 MG TAB PO SCH (00:45)
[2020-02-08] MEDS: Famotidine 20 MG TAB PO PRN ×2 (03:01→13:01)
[2020-02-08] MEDS ORDERED: Promethazine HCl 25 MG SUPP PR SCH (04:15)
[2020-02-08] MEDS ORDERED: Metoclopramide HCl 10 MG/2 ML VIAL IVP SCH (04:15)
[2020-02-08] MEDS ORDERED: Promethazine HCl 25 MG SUPP ONE (04:16)
[2020-02-08 05:47] LABS: #Basophils 0.1 thou/uL (0.0-0.2); #Eosinphils 0.1 thou/uL (0.0-0.7); #Lymphocytes 1.5 thou/uL (1.20-3.40); #Monocytes 0.6 thou/uL (0.11-0.59); #Neutrophils 10.9 thou/uL (1.40-6.50); %Basophils 0.6 % (0.0-1.0); %Eosinophils 0.8 % (0.0-10.0); %Lymphocytes 11.3 % (21.0-51.0); %Monocytes 4.8 % (0.0-10.0); %Neutrophils 82.4 % (42.0-75.0); Hemoglobin 10.2 g/dL (12.0-16.0); Mean Corpuscular Hemoglobin 26.3 pg (27.0-31.0); Mean Corpuscular Volume 87.8 fL (78.0-98.0); Mean Platelet Volume 8.3 fL (7.4-10.4); Platelet Count 257 thou/uL (130-400); Red Blood Cell (RBC) Count 3.86 mill/uL (4.20-5.40); White Blood Cell (WBC) Count 13.3 thou/uL (4.8-10.8)
[2020-02-08] MEDS: Sodium Chloride 0.9% 1,000 ML IV SCH ×2 (08:16→19:29)
[2020-02-08] MEDS: Acetaminophen 325 MG TAB PO PRN (08:19)
[2020-02-08] MEDS: lamoTRIgine 25 MG TAB PO SCH (08:21)
[2020-02-08] MEDS: Lisinopril 10 MG TAB PO SCH (08:23)
[2020-02-08] MEDS: busPIRone HCl 5 MG TAB PO SCH ×2 (08:24→15:41)
[2020-02-08] MEDS ORDERED: Morphine 2 MG/ML SYRINGE ONE ×2 (12:29→12:47)
[2020-02-08] MEDS ORDERED: Morphine 2 MG/ML SYRINGE SLOW IVP SCH (13:00)
[2020-02-08] MEDS: Promethazine 25 MG TAB PO PRN (13:01)
[2020-02-08 16:04] VITALS: BP 133/83; TEMP 98.3
[2020-02-08] MEDS ORDERED: Morphine 10 MG/ML VIAL ONE (16:59)
[2020-02-08] MEDS ORDERED: Morphine 4 MG/ML VIAL SLOW IVP SCH (17:30)
== END 2020-02-08 17:10 | disposition short-term general hospital (02) ==
LOC: BURERS 18:18 → BURMED 20:50
PROVIDERS: ADMIT Family Medicine; ATTEND Family Medicine
DX: R10.31 Right lower quadrant pain (principal); R10.11 Right upper quadrant pain; D72.828 Other elevated white blood cell count; I10 Essential (primary) hypertension; J45.909 Unspecified asthma, uncomplicated; F31.9 Bipolar disorder, unspecified; E66.01 Morbid (severe) obesity due to excess calories; Z68.44 Body mass index [BMI] 60.0-69.9, adult; Z87.891 Personal history of nicotine dependence; Z79.899 Other long term (current) drug therapy; Z88.0 Allergy status to penicillin
CPT/HCPCS: 36415; 74176; 74177; 80053; 81003; 82274; 83605; 85025; 87045; 87046; 87427; 87449; 90471; 90686; 90732; 96361; 96374; 96375; 96376; G0008; G0009; G0378; J1885; J2270; J2765; J3010; Q0162; Q0169

== ENCOUNTER 2020-11-07 09:22 | Emergency (ER) | payer OTHER | END 2020-11-07 09:46 | disposition home or self-care (01) | LOC: BURERS 09:22 | DX: T16.1XXA Foreign body in right ear, initial encounter (principal); Z79.899 Other long term (current) drug therapy; I10 Essential (primary) hypertension; J45.909 Unspecified asthma, uncomplicated; Z87.891 Personal history of nicotine dependence | CPT/HCPCS: 69200 ==

== ENCOUNTER 2021-01-27 18:22 | Emergency (ER) | payer OTHER ==
[2021-01-27] MEDS ORDERED: Ibuprofen 800 MG TAB ONE (18:59)
== END 2021-01-27 19:05 | disposition home or self-care (01) ==
LOC: BURERS 18:22
DX: S60.221A Contusion of right hand, initial encounter (principal); W23.0XXA Caught, crushed, jammed, or pinched between moving objects, initial encounter; Y99.0 Civilian activity done for income or pay; Z79.899 Other long term (current) drug therapy; I10 Essential (primary) hypertension; J45.909 Unspecified asthma, uncomplicated; E66.9 Obesity, unspecified; Z87.891 Personal history of nicotine dependence
CPT/HCPCS: 29125

== ENCOUNTER 2021-02-26 13:53 | Emergency (ER) | payer OTHER | END 2021-02-26 15:00 | disposition left against medical advice (07) | LOC: BURERS 13:53 | DX: Z53.21 Procedure and treatment not carried out due to patient leaving prior to being seen by health care provider (principal) ==

== ENCOUNTER 2021-03-14 18:09 | Observation (INO) | payer OTHER ==
[2021-03-14] MEDS ORDERED: Ondansetron PF 4 MG/2 ML Vial ONE ×2 (18:59→22:42)
[2021-03-14 19:48] LABS: ALT (SGPT) 60 U/L (8-55); AST (SGOT) 34 U/L (5-34); Albumin 4.5 g/dL (3.5-5.0); Alkaline Phosphatase 122 U/L (40-110); Anion Gap 19 mmol/L (10-20); BUN (Urea Nitrogen) 44 mg/dL (7.0-18.7); Bilirubin, Total 0.5 mg/dL (0.2-1.2); Calc. Creatinine Clearance 0 mL/min (70-130); Carbon Dioxide 19 mmol/L (22-29); Chloride 108 mmol/L (98-107); Globulin 4.2 g/dL (2.4-3.5); Glucose 89 mg/dL (70-105); Lipase 28 U/L (8-78); Potassium 4.5 mmol/L (3.5-5.1); Protein, Total 8.7 g/dL (6.0-8.3); Sodium 141 mmol/L (136-145)
[2021-03-14 20:06] LABS: #Basophils 0.1 thou/uL (0.0-0.2); #Eosinphils 0.1 thou/uL (0.0-0.7); #Lymphocytes 2.4 thou/uL (1.20-3.40); #Monocytes 0.7 thou/uL (0.11-0.59); #Neutrophils 10.9 thou/uL (1.40-6.50); %Basophils 0.7 % (0.0-1.0); %Eosinophils 0.5 % (0.0-10.0); %Lymphocytes 16.8 % (21.0-51.0); %Neutrophils 76.9 % (42.0-75.0); Hemoglobin 13.9 g/dL (12.0-16.0); Mean Corpuscular HGB CONC 32.8 g/dL (32.0-36.0); Mean Corpuscular Volume 88.5 fL (78.0-98.0); Mean Platelet Volume 8.2 fL (7.4-10.4); Platelet Count 314 thou/uL (130-400); RBC Distribution Width 12.9 % (11.5-14.5); Red Blood Cell (RBC) Count 4.79 mill/uL (4.20-5.40); White Blood Cell (WBC) Count 14.1 thou/uL (4.8-10.8)
[2021-03-14 22:16] LABS: Anion Gap 17 mmol/L (10-20); BUN (Urea Nitrogen) 41 mg/dL (7.0-18.7); Calc. Creatinine Clearance 0 mL/min (70-130); Calcium 8.7 mg/dL (7.8-10.44); Carbon Dioxide 16 mmol/L (22-29); Chloride 113 mmol/L (98-107); Glucose 80 mg/dL (70-105); Potassium 5.2 mmol/L (3.5-5.1); Sodium 141 mmol/L (136-145)
[2021-03-14 23:50] VITALS: BMI 66.2
[2021-03-15] MEDS ORDERED: HYDROcodone/Acetaminophen 5/325 mg Tablet PO PRN (00:21)
[2021-03-15] MEDS ORDERED: Ondansetron ODT 4 MG TAB SL PRN (00:30)
[2021-03-15] MEDS ORDERED: Acetaminophen 325 MG TAB PO PRN (00:30)
[2021-03-15] MEDS ORDERED: Ondansetron PF 4 MG/2 ML Vial IVP PRN (00:30)
[2021-03-15] MEDS ORDERED: PROMETHAZINE DM PO PRN (00:40)
[2021-03-15] MEDS ORDERED: hydrOXYzine 25 MG TAB PO SCH ×3 (00:45→12:00)
[2021-03-15] MEDS: Lactated Ringer's 1,000 ML IV SCH ×3 (00:50→06:09)
[2021-03-15 04:01] LABS: SARS-CoV-2 NAA Rapid Test Not Detected (NotDetected)
[2021-03-15 06:27] LABS: Potassium 4.5 mmol/L (3.5-5.1); Sodium 140 mmol/L (136-145)
[2021-03-15 06:28] LABS: BUN (Urea Nitrogen) 35 mg/dL (7.0-18.7); Calc. Creatinine Clearance 0 mL/min (70-130); Calcium 8.8 mg/dL (7.8-10.44); Carbon Dioxide 16 mmol/L (22-29); Chloride 113 mmol/L (98-107); Glucose 85 mg/dL (70-105)
[2021-03-15 06:30] LABS: Anion Gap 16 mmol/L (10-20)
[2021-03-15] MEDS ORDERED: Ondansetron ODT 4 MG TAB PO PRN (06:31)
[2021-03-15] MEDS ORDERED: Non-Formulary Item 1 EACH (Promethazine/Dextromethorphan [Promethazine-Dm 6.25-15 Mg/5ml] PO PRN (06:31)
[2021-03-15] MEDS ORDERED: Lisinopril 20 MG TAB PO SCH ×2 (09:00)
[2021-03-15] MEDS ORDERED: lamoTRIgine 25 MG TAB PO SCH ×2 (09:00)
[2021-03-15] MEDS ORDERED: Non-Formulary Item 1 EACH (Lisinopril [Zestril] 40 MG Tablet) PO SCH (09:00)
[2021-03-15] MEDS ORDERED: LAMOTRIGINE PO SCH (09:00)
[2021-03-15] MEDS ORDERED: Meloxicam 7.5 MG TAB PO SCH ×2 (09:00)
[2021-03-15] MEDS ORDERED: Hydrochlorothiazide 25 MG TAB PO SCH ×2 (09:00)
[2021-03-15] MEDS ORDERED: SERTRALINE HCL 100 MG PO SCH (09:00)
[2021-03-15] MEDS ORDERED: Pantoprazole 40 MG VIAL IVP SCH (09:00)
[2021-03-15] MEDS ORDERED: QUETIAPINE FUMARATE 200 MG PO SCH (09:00)
[2021-03-15 15:46] VITALS: BP 128/76; TEMP 98.2
[2021-03-15] MEDS ORDERED: traZODone HCl 50 MG TAB PO SCH ×2 (21:00)
[2021-03-15] MEDS ORDERED: Non-Formulary Item 1 EACH (Trazodone Hcl [Trazodone Hcl] 100 MG Tablet) PO SCH (21:00)
== END 2021-03-15 10:20 | disposition home or self-care (01) ==
LOC: BURERS 18:09 → BURMED 22:40
PROVIDERS: ADMIT Family Medicine; ATTEND Family Medicine
DX: E86.0 Dehydration (principal); N17.9 Acute kidney failure, unspecified; I10 Essential (primary) hypertension; F17.200 Nicotine dependence, unspecified, uncomplicated; E66.01 Morbid (severe) obesity due to excess calories; Z79.899 Other long term (current) drug therapy; Z88.0 Allergy status to penicillin; Z20.822 Contact with and (suspected) exposure to COVID-19
CPT/HCPCS: 36415; 80048; 80053; 83605; 83690; 85025; 87081; 87430; 87804; 90471; 90732; 93005; 96374; 96375; 96376; C9113; G0009; G0378; J2405; J7120; U0002

== ENCOUNTER 2021-08-28 15:21 | Emergency (ER) | payer OTHER ==
[2021-08-28 15:51] LABS: Bilirubin Negative (Negative); Blood, Urine Trace (Negative); Clarity Clear (Clear); Glucose, Urine (Dipstick) Negative (Negative); Ketone, Urine Negative (Negative); Leukocyte Moderate (Negative); Nitrite Negative (Negative); Protein, Urine (Dipstick) Negative (Neg-Trace); Specific Gravity, Urine 1.015 (1.005-1.030); Urobilinogen 0.2 mg/dL (Less than 2); pH, Urine 5.5 (5.0-9.0)
[2021-08-28 16:01] LABS: Bacteria/HPF 2+ HPF (None Seen); RBC/HPF 0-3 HPF (0-3); Transitional Epithelial 0-3 HPF (None Seen)
[2021-08-28 16:02] LABS: Epithelial Cast 0-3 LPF (None Seen); Trichomonas/HPF 1+ HPF (None Seen); WBC/HPF 21-50 HPF (0-3)
[2021-08-28] MEDS ORDERED: Morphine 4 MG/ML VIAL ONE (16:28)
[2021-08-28 16:44] LABS: Pregnancy Test - Urine (BHCG) Negative (Negative); Pregu Control Background? CLEAR/WHITE (CLR/WHITE); Pregu Control Bar Appear? YES (CONTROL BAR)
[2021-08-28 16:45] LABS: Specific Gravity 1.015 (1.002-1.036)
[2021-08-28 16:47] LABS: #Basophils 0.1 thou/uL (0.0-0.2); #Eosinphils 0.1 thou/uL (0.0-0.7); #Monocytes 0.4 thou/uL (0.11-0.59); #Neutrophils 7.1 thou/uL (1.40-6.50); %Basophils 1.1 % (0.0-1.0); %Eosinophils 0.5 % (0.0-10.0); %Lymphocytes 20.5 % (21.0-51.0); %Monocytes 4.4 % (0.0-10.0); %Neutrophils 73.4 % (42.0-75.0); Mean Corpuscular HGB CONC 32.6 g/dL (32.0-36.0); Mean Corpuscular Hemoglobin 29.1 pg (27.0-31.0); Mean Corpuscular Volume 89.1 fL (78.0-98.0); Mean Platelet Volume 8.3 fL (7.4-10.4); Platelet Count 302 thou/uL (130-400); RBC Distribution Width 12.8 % (11.5-14.5); Red Blood Cell (RBC) Count 3.78 mill/uL (4.20-5.40); White Blood Cell (WBC) Count 9.7 thou/uL (4.8-10.8)
[2021-08-28 16:49] LABS: ALT (SGPT) 17 U/L (8-55); AST (SGOT) 13 U/L (5-34); Albumin 4.2 g/dL (3.5-5.0); Alkaline Phosphatase 103 U/L (40-110); Anion Gap 15 mmol/L (10-20); BUN (Urea Nitrogen) 29 mg/dL (7.0-18.7); Bilirubin, Total 0.3 mg/dL (0.2-1.2); Calc. Creatinine Clearance 0 mL/min (70-130); Calcium 9.9 mg/dL (7.8-10.44); Carbon Dioxide 20 mmol/L (22-29); Chloride 109 mmol/L (98-107); Globulin 3.4 g/dL (2.4-3.5); Glucose 88 mg/dL (70-105); Lipase 18 U/L (8-78); Protein, Total 7.6 g/dL (6.0-8.3); Sodium 139 mmol/L (136-145)
[2021-08-28] MEDS ORDERED: Lidocaine Viscous Sol 2% 15 ml UD Cup ONE (17:10)
[2021-08-28] MEDS ORDERED: Mag-Al Plus 1200 MG/1200 MG/120 MG/30 ML UDCUP ONE (17:10)
[2021-08-28] MEDS ORDERED: cefTRIAXone\\ROCEPHIN 2 GM VIAL ONE (17:11)
== END 2021-08-28 18:16 | disposition home or self-care (01) ==
LOC: BURERS 15:21
DX: N39.0 Urinary tract infection, site not specified (principal); K29.70 Gastritis, unspecified, without bleeding; I10 Essential (primary) hypertension; K21.9 Gastro-esophageal reflux disease without esophagitis; F17.200 Nicotine dependence, unspecified, uncomplicated; Z79.899 Other long term (current) drug therapy
CPT/HCPCS: 74176; 80053; 81003; 81015; 81025; 83605; 83690; 85025; 87086; 96365; 96375; J0696; J2270

== ENCOUNTER 2022-07-09 12:07 | Emergency (ER) | payer OTHER ==
[2022-07-09] MEDS ORDERED: predniSONE 20 MG TAB ONE (12:38)
[2022-07-09] MEDS ORDERED: Azithromycin 250 MG TAB ONE (12:38)
== END 2022-07-09 13:05 | disposition home or self-care (01) ==
LOC: BURERS 12:07
DX: J45.901 Unspecified asthma with (acute) exacerbation (principal); J06.9 Acute upper respiratory infection, unspecified; R59.0 Localized enlarged lymph nodes; K21.9 Gastro-esophageal reflux disease without esophagitis; I10 Essential (primary) hypertension; J45.909 Unspecified asthma, uncomplicated; F17.210 Nicotine dependence, cigarettes, uncomplicated
CPT/HCPCS: 94640; J7512; J7620